=== PATIENT | female | born 1970 | race Caucasian/White ===

== ENCOUNTER → 2022-06-01 09:12 | Outpatient (CLI) | payer BC, SELFPAY ==
--- NOTE | ~2022-06-01 | CT_ITS ---
EXAMINATION: CT abdomen pelvis wo con DATE: 06/01/2022 09:31 INDICATION: Stage III chronic kidney disease, distal renal tubular acidosis. Nephrocalcinosis. TECHNIQUE: Computed tomography (CT) of the abdomen and pelvis was performed without intravenous contr ast. Automated exposure control and iterative reconstruction technique were employed. Exam dose: 841 .74 mGy-cm total exam DLP. COMPARISON: None. FINDINGS: There is minimal dependent right lower lobe atelectasis. The lung bases are otherwise clear of infiltrate or consolidation. Normal heart size. No pericardial or pleural effusion. Moderately large sliding hiatal hernia. There is nonspecific thickening of the wall of the distal eso phagus which may be due to esophagitis. The liver, gallbladder, bile ducts, pancreas, pancreatic duct, spleen and adrenal glands are unremark able. Subtle pinpoint nonobstructing upper pole right renal calculus is suggested. Several subtle pinpoint nonobstructing left renal calculi are suggested. There is a very dense up to approximately 11.8 x 15.7 mm calcification of the lateral aspect of the u pper pole of the left kidney. No ureteral calculus or hydroureteronephrosis. The urinary bladder, monalisa cameron and adnexal areas are unremarkable. Normal caliber of the abdominal aorta. No intraperitoneal or retroperitoneal or pelvic mass lesion or adenopathy or ascites is detected. There are multiple small bowel air-fluid levels, without dilatation or wall thickening or transition point of the small bowel. Normal appendix. There is minimal sigmoid diverticulosis; no CT evidence of diverticulitis. No bowel obstruction, tulio l wall thickening, pneumatosis or intraperitoneal free air is detected. Small fat-containing umbilical hernia. 4 mm sclerotic lesion of T11 vertebral body, statistically most likely a small bone island. No suspic ious osteolytic or osteoblastic lesions are noted. IMPRESSION: Bilateral renal calcifications without urinary tract obstruction or hydroureteronephrosi s Mild diverticulosis of sigmoid colon; no evidence of diverticulitis Normal appendix Scattered small bowel air-fluid levels without obstruction or bowel wall thickening, pneumatosis or i ntraperitoneal free air Moderately large sliding hiatal hernia Reviewed, dictated and finalized at [facility]. Reviewed, dictated and finalized at [facility]. IMPRESSION: Bilateral renal calcifications without urinary tract obstruction o r hydroureteronephrosis Mild diverticulosis of sigmoid colon; no evidence of diverticulitis Normal appendix Scattered small bowel air-fluid levels without obstruction or bowel wall thicke dameon, pneumatosis or intraperitoneal free air Moderately large sliding hiatal hernia
== END ==
PROVIDERS: Visit Provider Internal Medicine Nephrology
DX: N18.32 Chronic kidney disease, stage 3b (principal); N25.89 Other disorders resulting from impaired renal tubular function; H90.3 Sensorineural hearing loss, bilateral; K57.30 Diverticulosis of large intestine without perforation or abscess without bleeding; K44.9 Diaphragmatic hernia without obstruction or gangrene; N20.0 Calculus of kidney
CPT/HCPCS: 74176

== ENCOUNTER → 2023-07-03 16:01 | Outpatient (CLI) | payer BC, SELFPAY ==
--- NOTE | ~2023-07-03 | US_ITS ---
Renal-Bladder ultrasound Clinical History: Chronic kidney disease Technique: Real-time sonographic imaging of the kidneys and urinary bladder was performed. Findings: The right kidney measures 7.3 cm in length and the left kidney measures 8.9 cm. There is no hydronephrosis. 18 mm nonobstructing left midpole renal stone present. Renal cortical echogenicity i s increased. No renal mass lesion is identified. The urinary bladder is partially distended at the time of this exam. No intraluminal echoes are ident ified. No abnormal wall thickening is seen. Impression: Echogenic kidneys suggest chronic medical renal disease. No hydronephrosis.. 18 mm nonobstructing left renal stone. Reviewed, dictated and finalized at [facility] [employer] Impression: Echogenic kidneys suggest chronic medical renal disease. No hydronephrosis.. 18 mm nonobstructing left renal stone.
== END ==
PROVIDERS: PCP Internal Medicine Nephrology; Visit Provider Internal Medicine Nephrology
DX: N18.32 Chronic kidney disease, stage 3b (principal); N20.0 Calculus of kidney
CPT/HCPCS: 76775